=== PATIENT | female | born 1960 | race Caucasian/White ===

== ENCOUNTER 2023-03-23 17:13 | Inpatient (IN) | payer MEDICARE, BC ==
[2023-03-23 16:44] LABS: BASOPHILS ABSOLUTE AUTO 0.02 10^3/uL (0.00-0.50); BASOPHILS PERCENT AUTO 0.1 % (0-1); EOSINOPHILS ABSOLUTE AUTO 0.04 10^3/uL (0.00-1.50); EOSINOPHILS PERCENT AUTO 0.2 % (0-6); HEMATOCRIT 39.9 % (37.0-47.0); HEMOGLOBIN 13.7 g/dL (12.0-16.0); IMMATURE GRAN ABSOLUTE AUTO 0.11 10^3/uL (0.00-0.49); IMMATURE GRAN PERCENT AUTO 0.5 % (0.0-4.9); LYMPHOCYTES ABSOLUTE AUTO 2.08 10^3/uL (0.60-5.00); LYMPHOCYTES PERCENT AUTO 10.3 % (24-44); MEAN CORPUSCULAR HEMOGLOBIN 29.7 pg (27.0-32.0); MEAN CORPUSCULAR HGB CONC 34.3 g/dL (32.0-36.0); MEAN CORPUSCULAR VOLUME 86.6 fL (83.0-97.0); MONOCYTES PERCENT AUTO 12.4 % (0-10); NEUTROPHILS ABSOLUTE AUTO 15.49 x10^3/uL (1.80-8.00); NEUTROPHILS PERCENT AUTO 76.5 % (41-71); PLATELET COUNT,PLT 261 10^3/uL (150-400); RED BLOOD CELL COUNT 4.61 x10^6/uL (4.00-5.50)
[2023-03-23 16:53] LABS: APPEARANCE,URINE CLOUDY (CLEAR); BILIRUBIN,URINE NEGATIVE (NEGATIVE); COLOR,URINE DARK YELLOW (YELLOW); GLUCOSE,URINE 500 mg/dL (NEGATIVE); KETONES,URINE NEGATIVE (NEGATIVE); LEUKOCYTE ESTERASE,URINE TRACE (NEGATIVE); NITRITE,URINE POSITIVE (NEGATIVE); OCCULT BLOOD,URINE MODERATE (NEGATIVE); PH,URINE 5.5 (4.5-8.0); PROTEIN,URINE 30 mg/dL (NEGATIVE); UROBILINOGEN,URINE 0.2 EU/dL (0.2-1.0)
[2023-03-23 16:55] LABS: WHITE BLOOD CELL COUNT,WBC 20.2 10^3/uL (4.0-11.0)
[2023-03-23 17:01] LABS: BACTERIA,URINE MANY /HPF (NOT SEEN); SQUAMOUS EPITHELIAL CELLS,UR FEW /HPF (NOT SEEN); WBC,URINE 30-40 /HPF (0-5)
[2023-03-23 17:18] LABS: ALANINE AMINOTRANSFERASE,ALT 26 U/L (12-78); ALBUMIN 2.8 g/dL (3.4-5.0); ALKALINE PHOSPHATASE 172 U/L (46-116); ASPARTATE AMNIOTRANSFERASE,AST 53 U/L (15-37); BILIRUBIN TOTAL 0.5 mg/dL (0.0-1.0); BLOOD UREA NITROGEN,BUN 7 mg/dL (7-18); C-REACTIVE PROTEIN 14.09 mg/dL (<=0.30); CARBON DIOXIDE,CO2 23 mmol/L (21-32); CHLORIDE,CL 101 mEq/L (98-106); GLUCOSE RANDOM 234 mg/dL (75-99); POTASSIUM,K 3.8 mEq/L (3.5-5.0); PROTEIN TOTAL,TP 6.9 g/dL (6.4-8.2); SODIUM,NA 135 mEq/L (136-145)
[2023-03-23 17:21] LABS: ESTIMATED GFR 63 mL/min (>=60)
[2023-03-23] MEDS ORDERED: Acetaminophen 325 MG Tab PO PRN (18:01)
[2023-03-23] MEDS ORDERED: Sodium Chloride 0.9% 10 ML Syringe FLUSH PRN (18:01)
[2023-03-23] MEDS ORDERED: Ondansetron 4 MG Tab.DIS PO PRN (18:07)
[2023-03-23] MEDS ORDERED: Ondansetron 4 MG/2 ML SDV IV PRN (18:07)
[2023-03-23] MEDS: Sodium Chloride 0.9% 1,000 ML IV SCH (18:30)
[2023-03-23] MEDS: cefTRIAXone 1 GM Vial IVPUSH SCH (18:30)
[2023-03-23] MEDS ORDERED: Insulin Glarg,Human.Rec.Analog 100 Unit/ML 10 ML Vial SUBCUT SCH ×2 (20:00)
[2023-03-23] MEDS: Ibuprofen 200 MG Tab PO PRN (22:13)
[2023-03-24 07:30] LABS: BASOPHILS ABSOLUTE AUTO 0.04 10^3/uL (0.00-0.50); BASOPHILS PERCENT AUTO 0.3 % (0-1); EOSINOPHILS ABSOLUTE AUTO 0.27 10^3/uL (0.00-1.50); EOSINOPHILS PERCENT AUTO 1.7 % (0-6); HEMOGLOBIN 12.4 g/dL (12.0-16.0); IMMATURE GRAN ABSOLUTE AUTO 0.08 10^3/uL (0.00-0.49); IMMATURE GRAN PERCENT AUTO 0.5 % (0.0-4.9); LYMPHOCYTES ABSOLUTE AUTO 2.24 10^3/uL (0.60-5.00); MEAN CORPUSCULAR HEMOGLOBIN 29.9 pg (27.0-32.0); MEAN CORPUSCULAR HGB CONC 34.4 g/dL (32.0-36.0); MEAN CORPUSCULAR VOLUME 86.7 fL (83.0-97.0); MONOCYTES ABSOLUTE AUTO 2.43 10^3/uL (0.00-1.50); MONOCYTES PERCENT AUTO 15.2 % (0-10); NEUTROPHILS ABSOLUTE AUTO 10.91 x10^3/uL (1.80-8.00); NEUTROPHILS PERCENT AUTO 68.3 % (41-71); PLATELET COUNT,PLT 235 10^3/uL (150-400); RED BLOOD CELL COUNT 4.15 x10^6/uL (4.00-5.50)
[2023-03-24] MEDS: atorvaSTATin 10 MG Tab PO SCH (07:42)
[2023-03-24] MEDS: Enoxaparin 40 MG/0.4 ML Syringe SUBCUT SCH (07:42)
[2023-03-24] MEDS: Sodium Chloride 0.9% 1,000 ML IV SCH ×2 (07:43→19:46)
[2023-03-24] MEDS: Losartan 100 MG Tab PO SCH (07:44)
[2023-03-24 07:49] LABS: LACTIC ACID 0.7 mmol/L (0.4-2.0)
[2023-03-24 08:01] LABS: ALBUMIN 2.4 g/dL (3.4-5.0); BILIRUBIN TOTAL 0.4 mg/dL (0.0-1.0); C-REACTIVE PROTEIN 11.89 mg/dL (<=0.30); CALCIUM 8.4 mg/dL (8.4-10.1); CREATININE 0.8 mg/dL (0.6-1.0); EST CRCL DRUG DOSING (CG) 55.45 mL/min; POTASSIUM,K 3.7 mEq/L (3.5-5.0)
[2023-03-24] MEDS: metFORMIN 500 MG Tab PO SCH ×2 (09:03→17:01)
[2023-03-24] MEDS: Ibuprofen 200 MG Tab PO PRN (14:03)
[2023-03-24] MEDS: cefTRIAXone 1 GM Vial IVPUSH SCH (17:03)
[2023-03-24] MEDS ORDERED: Insulin Glarg,Human.Rec.Analog 100 Unit/ML 10 ML Vial SUBCUT SCH (20:00)
[2023-03-25] MEDS: Enoxaparin 40 MG/0.4 ML Syringe SUBCUT SCH (07:39)
[2023-03-25] MEDS: atorvaSTATin 10 MG Tab PO SCH (07:41)
[2023-03-25] MEDS: Losartan 100 MG Tab PO SCH (07:45)
[2023-03-25] MEDS: metFORMIN 500 MG Tab PO SCH (07:45)
[2023-03-25 07:46] LABS: BASOPHILS ABSOLUTE AUTO 0.03 10^3/uL (0.00-0.50); BASOPHILS PERCENT AUTO 0.3 % (0-1); EOSINOPHILS ABSOLUTE AUTO 0.33 10^3/uL (0.00-1.50); EOSINOPHILS PERCENT AUTO 3.1 % (0-6); HEMATOCRIT 37.2 % (37.0-47.0); HEMOGLOBIN 12.5 g/dL (12.0-16.0); IMMATURE GRAN ABSOLUTE AUTO 0.07 10^3/uL (0.00-0.49); IMMATURE GRAN PERCENT AUTO 0.7 % (0.0-4.9); LYMPHOCYTES ABSOLUTE AUTO 1.51 10^3/uL (0.60-5.00); LYMPHOCYTES PERCENT AUTO 14.3 % (24-44); MEAN CORPUSCULAR HEMOGLOBIN 29.6 pg (27.0-32.0); MEAN CORPUSCULAR HGB CONC 33.6 g/dL (32.0-36.0); MEAN CORPUSCULAR VOLUME 88.2 fL (83.0-97.0); MONOCYTES ABSOLUTE AUTO 1.61 10^3/uL (0.00-1.50); MONOCYTES PERCENT AUTO 15.3 % (0-10); NEUTROPHILS ABSOLUTE AUTO 6.99 x10^3/uL (1.80-8.00); NEUTROPHILS PERCENT AUTO 66.3 % (41-71); PLATELET COUNT,PLT 263 10^3/uL (150-400); RED BLOOD CELL COUNT 4.22 x10^6/uL (4.00-5.50); WHITE BLOOD CELL COUNT,WBC 10.5 10^3/uL (4.0-11.0)
[2023-03-25] MEDS ORDERED: cefTRIAXone 1 GM Vial IVPUSH SCH (14:00)
== END 2023-03-25 14:18 | disposition home or self-care (01) | DRG 690 ==
LOC: CC.MS 17:13 → UNDOADMIN 17:13 → CC.MS 18:01
PROVIDERS: ADMIT Family Medicine; ATTEND Nurse Practitioner Family
DX: N10 Acute pyelonephritis (principal); E11.9 Type 2 diabetes mellitus without complications; K21.9 Gastro-esophageal reflux disease without esophagitis; I10 Essential (primary) hypertension; M17.10 Unilateral primary osteoarthritis, unspecified knee; E78.00 Pure hypercholesterolemia, unspecified; Z20.822 Contact with and (suspected) exposure to COVID-19; D72.829 Elevated white blood cell count, unspecified; B96.20 Unspecified Escherichia coli [E. coli] as the cause of diseases classified elsewhere; Z88.0 Allergy status to penicillin; Z79.899 Other long term (current) drug therapy; Z79.84 Long term (current) use of oral hypoglycemic drugs; Z98.890 Other specified postprocedural states; Z90.710 Acquired absence of both cervix and uterus; Z79.4 Long term (current) use of insulin
CPT/HCPCS: 36415; 80053; 81001; 82947; 83605; 85025; 86140; 87040; 87086; 87088; 87186; 87804; 99223; 99233; 99238; A9270-GY; J0696; J1650; J1815-GY; J7030; U0002